=== PATIENT | male | born 1960 | race Caucasian/White ===

== ENCOUNTER 2018-05-15 16:22 | Inpatient (IN) | payer OTHER ==
[~2018-05-15] VITALS: Ht 172.7 cm; Wt 88.9 kg
[~2018-05-15 16:22] MED LIST: FLOMAX0.4 MG PO; INVOKANA300 MG PO; JANUMET 50-5001 EACH PO; JANUVIA100 MG PO; LIPITOR10 MG PO; OMEPRAZOLE20 M1 PO; PRANDIN2 MG PO
[2018-05-15 16:29] VITALS: BP 119/74; BP 159/86
[2018-05-15] MEDS ORDERED: HUMALOG100 UNIT/1 SUBQ (16:35)
[2018-05-15] MEDS ORDERED: JARDIANCE10 MG PO (16:36)
[2018-05-15] MEDS ORDERED: TRESIBA FL100 UNIT/1 SUBQ (16:36)
[2018-05-15] MEDS ORDERED: FISH OIL 1,001000 M2 PO (16:37)
[2018-05-15] MEDS ORDERED: FISH OIL 1,2001 EAC4 PO (16:37)
[2018-05-15 16:49] LABS: ABSOLUTE EOSINOPHILS 0.5 thou/uL (0.0-0.7); ABSOLUTE LYMPHOCYTES 1.8 thou/uL (0.8-5.3); ABSOLUTE MONOCYTES 0.7 thou/uL (0.0-1.2); ABSOLUTE NEUTROPHILS 4.5 thou/uL (1.6-8.1); BASOPHILS 0.5 %; EOSINOPHILS 6.6 %; HEMOGLOBIN 17.4 gm/dL (14.0-18.0); LYMPHOCYTES 23.6 %; MCH 30.8 pg (26.0-34.0); MCV 90.6 fL (80.0-100.0); MONOCYTES 9.6 %; MPV 7.6 fl. (7.2-11.1); NUCLEATED RBCS 0 /100WBC; PLATELET COUNT* 251 thou/uL (150-400); POLYS 59.7 %; RBC 5.63 mil/uL (4.50-6.00); RDW-CV 12.9 % (10.5-14.5); WBC 7.5 thou/uL (4.0-11.0)
[2018-05-15 16:59] LABS: ANION GAP 5 mmol/L (7-16); BUN 19 mg/dL (7-18); CALCIUM 8.6 mg/dL (8.5-10.1); CHLORIDE 101 mmol/L (98-107); CO2 30 mmol/L (21-32); CREATININE 1.1 mg/dL (0.6-1.3); GLUCOSE 131 mg/dL (70-99); POTASSIUM 3.4 mmol/L (3.5-5.1); SODIUM 136 mmol/L (136-145)
[2018-05-15 17:01] LABS: INR 1.1
[2018-05-15 17:10] LABS: ALBUMIN 3.7 g/dL (3.4-5.0); ALKALINE PHOSPHATASE 88 U/L (46-116); LIPASE 100 U/L (73-393); NT-PRO BRAIN NAT PEPTIDE 21 pg/mL (<300); SGOT 32 U/L (15-37); SGPT 50 U/L (30-65); TOTAL BILIRUBIN 0.4 mg/dL (<0.1-1.0); TOTAL PROTEIN 7.9 g/dL (6.4-8.2); TROPONIN-I LEVEL <0.06 ng/mL (<0.06)
[2018-05-15] MEDS ORDERED: Z-SLEEP25 MG PO (17:57)
[2018-05-15 20:44] VITALS: BP 135/89
[2018-05-15 20:50] VITALS: BP 141/84
[2018-05-16] VITALS (11 sets, daily range): BP systolic 105–133; BP diastolic 55–87
--- NOTE | 2018-05-16 17:22 | EKG ---
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: : 1960 Requested By: Leroy Galaviz Order Number: [id number] MD: Nba Schroeder Measurements Intervals [place] Rate: 66 P: 45 [place]: 161 QRS: -17 QRSD: 125 T: 24 QT: 418 QTc: 438 Interpretive Statements Sinus rhythm Atrial premature complex Possible left atrial enlargement Right bundle branch block Compared to ECG 10/09/2016 09:33:15 Atrial premature complex(es) now present Electronically Signed On 05-16-2018 17:22:26 CDT by Nba Schroeder [email or web address] <ELECTRONICALLY SIGNED> By: Nba Schroeder MD, FACC 05/16/18 1722 1628 1628 Nba Schroeder MD, [facility] /EPI
--- NOTE | 2018-05-16 17:23 | EKG ---
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[facility] : 1960 Requested By: Leroy Galaviz Order Number: [id number] MD: Nba Schroeder Measurements Intervals [place] Rate: 68 P: 32 [place]: 148 QRS: -14 QRSD: 123 T: 12 QT: 432 QTc: 460 Interpretive Statements Sinus rhythm Right bundle branch block Compared to ECG 10/09/2016 09:33:15 No significant changes Electronically Signed On 05-16-2018 17:22:48 CDT by Nba Schroeder [email or web address] <ELECTRONICALLY SIGNED> By: Nba Schroeder MD, [facility] 05/16/18 1722 1728 Nba Schroeder MD, FAC /EPI
--- NOTE | 2018-05-16 17:26 | EKG ---
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 : 1960 Requested By: Nba Schroeder Order Number: [id number] MD: Nba Schroeder Measurements Intervals [place] Rate: 82 P: 42 [place]: 150 QRS: -40 QRSD: 104 T: -14 QT: 393 QTc: 459 Interpretive Statements Sinus rhythm Multiple premature complexes, vent & supraven Low voltage, precordial leads RSR' in V1 or V2, probably normal variant Consider anterior infarct Borderline T abnormalities, inferior leads Compared to ECG 10/09/2016 09:33:15 Low QRS voltage now present RSR' in V1 or V2 now present Myocardial infarct finding now present T-wave abnormality now present Right bundle-branch block no longer present Electronically Signed On 05-16-2018 17:26:47 CDT by Nba Schroeder [email or web address] <ELECTRONICALLY SIGNED> By: Nba Schroeder MD, FACC 05/16/18 1726 51 125 Nba Schroeder MD, FACC /EPI
--- NOTE | 2018-05-16 17:27 | EKG ---
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
[2018-05-17] VITALS (9 sets, daily range): BP systolic 121–174; BP diastolic 69–87
[2018-05-17 04:38] LABS: MCH 31.2 pg (26.0-34.0); MCHC 34.7 g/dL (28.0-37.0); MCV 89.7 fL (80.0-100.0); MPV 7.7 fl. (7.2-11.1); RBC 4.79 mil/uL (4.50-6.00); WBC 7.5 thou/uL (4.0-11.0)
[2018-05-17 04:47] LABS: HEMOGLOBIN 14.9 gm/dL (14.0-18.0)
[2018-05-17 04:58] LABS: ALKALINE PHOSPHATASE 63 U/L (46-116); ANION GAP 6 mmol/L (7-16); BUN 12 mg/dL (7-18); CALCIUM 8.2 mg/dL (8.5-10.1); CHLORIDE 104 mmol/L (98-107); CHOLESTEROL 157 mg/dL (<200); CO2 25 mmol/L (21-32); CREATININE 0.9 mg/dL (0.6-1.3); GLUCOSE 133 mg/dL (70-99); HDL CHOLESTEROL 38 mg/dL (>40); LDL CHOLESTEROL 98 mg/dL (<100); POTASSIUM 3.8 mmol/L (3.5-5.1); SGOT 27 U/L (15-37); SGPT 41 U/L (30-65); SODIUM 135 mmol/L (136-145); TC:HDL 4.1 Ratio (Not establshd); TOTAL BILIRUBIN 0.6 mg/dL (<0.1-1.0); TOTAL PROTEIN 6.5 g/dL (6.4-8.2); TRIGLYCERIDE 106 mg/dL (<150); TROPONIN-I LEVEL 0.37 ng/mL (<0.06); VLDL 21 mg/dL (<40)
[2018-05-17 05:02] LABS: SERUM ASSESSMENT CLEAR
[2018-05-17] MEDS ORDERED: EFFIENT10 MG PO (10:24)
[2018-05-17] MEDS ORDERED: NITROGLYCERIN0.4 MG SUBLING (10:25)
[2018-05-17] MEDS ORDERED: ASPIR 8181 MG PO (10:33)
[2018-05-17] MEDS ORDERED: LIVALO4 MG PO (10:34)
--- NOTE | 2018-05-17 17:00 | EKG ---
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
--- NOTE | 2018-05-19 11:26 | CARD ---
[address] [address] CARDIAC CATH REPORT Name: CORBY LAWTON Room: [address] IN ..#: [id number] Admission: 05/15/18 Attend Phys: Will Henderson Discharge: 05/17/18 Date of : 60 Report #: [id number] THIS REPORT FOR: //name// APPROVED REPORT Study performed: 05/16/2018 13:54:01 Patient Details Patient Status: In-Patient Room #: 206 The patient is a 57 year-old male Event Personnel Moises Riddel Pin Drafting Machine Tender, Loree Aceves RN Finish Filer, Osvaldo Hutchison Haley, Jessica RTYaneth Monitor Procedures Performed Art Access - L femoral artery* Left Heart Cath w/or w/o Coronaries [id number] [facility] w/wo Plasty Single LAD [id number] Hemostasis w/ Angioseal Indication Unstable angina Risk Factors Family History, Hypercholesterolemia, Hypertension Admission/Lab Medications/Medications given during procedure Aspirin, Platelet Aff. Inhib., Angiomax bolus and infusion Procedure Narrative The patient was brought electively to the Cardiac Catheterization Laboratory and was prepped and draped in a sterile manner. The left femoral was infiltrated with 2% Lidocaine subcutaneous anesthesia. A [place] 6 FR sheath was inserted into the left femoral artery. Coronary angiography was performed using coronary diagnostic catheters. The right coronary system was accessed and visualized with a 6frJR 4 catheter. The left coronary system was accessed and visualized with a 6FR JL 4 catheter. The left ventricle was accessed and visualized with a 6FR PIGTAIL catheter. Left ventricular/Aortic Valve gradient assessed via catheter pullback. Left ventriculogram was performed in SALGADO projection. Pre-demployment femoral angiogram was performed . Closure device was deployed with a 6 Fr Angioseal STS 6Fr. The patient tolerated the procedure well and there were no complications associated with the procedure. [place] [address] CARDIAC CATH REPORT Name: CORBY LAWTON Room: [address]#: [id number] Admission: 05/15/18 Attend Phys: Will Henderson Discharge: 05/17/18 Date of : 60 Report #: [id number] Intraoperative Conscious Sedation Sedation start time: 14:35 Case end Time: 15:25 Fentanyl 50 mcg Versed 2 mg Fluoro Time: 15.5 minutes Dose: DAP 696723 cGycm2 1603 mGy Contrast Type and Amount: Visipaque 360 ml Diagnostic Cath Left Main 0% narrowing LAD Tandem 75 and 80% mid vessel stenosis followed by tubular 90% mid LAD stenosis Circumflex 40 Percent narrowing of the proximal portion of the first marginal branch with 30% proximal second marginal narrowing Right Coronary Modest sized dominant vessel with 0% narrowing Left Ventriculography The left ventricle is normal in size with contractility. The left ventricular ejection fraction is estimated to be 60%. Left ventricular wall motion abnormalities are present. There is no mitral insufficiency. Mild anterior hypokinesis is noted Hemodynamics The aortic pressure is 100/57 mmHg with a mean of mmHg. The left ventricular pressure is 117/3 mmHg with a mean of mmHg. The left ventricular end diastolic pressure is 8 mmHg. There was no gradient across the aortic valve upon pullback. Pullback from the left ventricle to the aorta revealed no gradient across the aortic valve. PCI Technique Lesion Percutaneous coronary intervention was performed on the mid left anterior descending artery segment. The lesion stenosis prior to intervention was 90% with DEEP flow. A 6F XB LAD 3.5 Guide Catheter was used to engage the LCA ostium. A Kabbee Interventional Guidewire was used to cross the lesion. BALLOON DILATION A Balloon catheter Trek RX 2.25 X 12 was inserted and inflated up to 10.00atm for 10seconds. Additional Inflation: 16.00atm for 12seconds. STENT DEPLOYMENT A drug-eluting stent Xience Alpine RX 2.25X23 [place] [address] CARDIAC CATH REPORT Name: CORBY LAWTON Room: [address] IN M.R.#: [id number] Admission: 05/15/18 Attend Phys: Will Henderson Discharge: 05/17/18 Date of : 60 Report #: [id number] inflated up to 12.00atm for 8seconds. Additional Inflation: 15.00atm for 8seconds. Additional Inflation: 16.00atm for 8seconds. POST STENT DEPLOYMENT BALLOON DILATION A Balloon catheter NC Trek RX 2.5 X 12 was inserted and inflated up to 16.00atm for 6seconds. Additional Inflation: 18.00atm for 11seconds. Final angiography reveals 10 % stenosis with DEEP 3 flow. PCI Technique Lesion 2 Percutaneous Coronary Intervention was performed on the mid left anterior descending artery segment. Stent Deployment A drug-eluting stent Xience Alpine RX 2.5X28 was inserted and inflated up to 12atm for 8seconds. Additional Inflation: 16atm for 7seconds. Post Stent Deployment Balloon Dilation A Balloon catheter NC Trek RX 2.75 X 12 was inserted and inflated up to 14atm for 6seconds. Additional Inflation: 15atm for 7seconds. Additional Inflation: 16atm for 7seconds. 18 HOLA X 8 Seconds 22ATM X 10 Seconds Final angiography reveals 10 % stenosis with DEEP 3 flow. Post Stent Deployment Balloon Dilation A Balloon catheter NC Trek RX 3.0 X 12 was inserted and inflated up to 16atm for 8seconds. Additional Inflation: 18atm for 9seconds. Additional Inflation: 18atm for 4seconds. Conclusion #1 significant coronary artery disease characterized by following: A tandem 75 and 80% followed by 90% tubular mid LAD stenosis B nondominant circumflex with 40% proximal first marginal 30% proximal second marginal narrowing C modest sized dominant right coronary artery with 0% narrowing #2 normal global left ventricular systolic function, estimated ejection fraction being 60% with mild anterior hypokinesis #3 normal left-sided hemodynamics study [address] [address] CARDIAC CATH REPORT Name: CORBY LAWTON Room: [address] IN M.R.#: [id number] Admission: 05/15/18 Attend Phys: Will Henderson Discharge: 05/17/18 Date of : 60 Report #: [id number] #4 successful percutaneous coronary intervention with deployment of sequential drug-eluting stents at the sites of 75%, 80%, and tubular 90% mid LAD stenosis with 10% residual narrowing and DEEP-3 flow to the distal vessel Recommendations Cardiac Risk Reduction Program Aggressive Medical Therapy Medications Administered Aspirin (any) Prasugrel Diagnostic Cath Approved by: Moises Riddle MD Date/Time: 05/19/2018 11:25:48 <ELECTRONICALLY SIGNED> By: Moises Riddle MD, FACC 05/19/18 1126 1126 1126Moises Riddle MD, FACC /INF
== END 2018-05-17 13:00 | disposition home or self-care (01) | DRG 247 ==
LOC: M.ERS 16:22 → M.TBA-ER 17:32 → M.2W 17:32
PROVIDERS: Emergency Medicine; Internal Medicine; ADMIT Internal Medicine
PROC: B211YZZ Fluoroscopy of Multiple Coronary Arteries using Other Contrast (ICD-10-PCS; principal; 2018-05-16)
PROC: 4A023N7 Measurement of Cardiac Sampling and Pressure, Left Heart, Percutaneous Approach (ICD-10-PCS; principal; 2018-05-16)
PROC: 027035Z Dilation of Coronary Artery, One Artery with Two Drug-eluting Intraluminal Devices, Percutaneous Approach (ICD-10-PCS; principal; 2018-05-16)
PROC: B215YZZ Fluoroscopy of Left Heart using Other Contrast (ICD-10-PCS; principal; 2018-05-16)
DX: I25.110 Atherosclerotic heart disease of native coronary artery with unstable angina pectoris (principal); E87.1 Hypo-osmolality and hyponatremia; E11.9 Type 2 diabetes mellitus without complications; E78.00 Pure hypercholesterolemia, unspecified; E78.5 Hyperlipidemia, unspecified; K57.90 Diverticulosis of intestine, part unspecified, without perforation or abscess without bleeding; Z90.49 Acquired absence of other specified parts of digestive tract; Z88.8 Allergy status to other drugs, medicaments and biological substances; Z87.891 Personal history of nicotine dependence; Z82.49 Family history of ischemic heart disease and other diseases of the circulatory system; Z83.3 Family history of diabetes mellitus; Z79.82 Long term (current) use of aspirin; Z79.899 Other long term (current) drug therapy

== ENCOUNTER 2018-12-19 09:31 | Observation (INO) | payer OTHER ==
[~2018-12-19] VITALS: Ht 172.7 cm; Wt 90.7 kg
[2018-12-19] VITALS (16 sets, daily range): BP systolic 95–137; BP diastolic 59–78
[~2018-12-19 09:31] MED LIST changes: +ASPIR 8181 MG PO; +EFFIENT10 MG PO; +FISH OIL 1,001000 M2 PO; +HUMALOG100 UNIT/1 SUBQ; +JARDIANCE10 MG PO; +LIVALO4 MG PO; +NITROGLYCERIN0.4 MG SUBLING; +TRESIBA FL100 UNIT/1 SUBQ; +Z-SLEEP25 MG PO
[2018-12-19] MEDS ORDERED: ISOSORBIDE DINI30 MG PO (09:38)
[2018-12-19] MEDS ORDERED: EFFIENT10 MG PO (09:38)
[2018-12-19 10:03] LABS: ABSOLUTE EOSINOPHILS 0.2 thou/uL (0.0-0.7); ABSOLUTE LYMPHOCYTES 1.2 thou/uL (0.8-5.3); ABSOLUTE MONOCYTES 0.9 thou/uL (0.0-1.2); ABSOLUTE NEUTROPHILS 5.3 thou/uL (1.6-8.1); BASOPHILS 0.4 %; EOSINOPHILS 2.8 %; HEMATOCRIT 44.9 % (42.0-52.0); HEMOGLOBIN 15.4 gm/dL (14.0-18.0); LYMPHOCYTES 15.4 %; MCH 30.4 pg (26.0-34.0); MCHC 34.2 g/dL (28.0-37.0); MCV 88.9 fL (80.0-100.0); MONOCYTES 11.7 %; MPV 7.7 fl. (7.2-11.1); NUCLEATED RBCS 0 /100WBC; PLATELET COUNT* 197 thou/uL (150-400); POLYS 69.7 %; RBC 5.06 mil/uL (4.50-6.00); RDW-CV 13.4 % (10.5-14.5); WBC 7.5 thou/uL (4.0-11.0)
[2018-12-19 10:12] LABS: ANION GAP 9 mmol/L (7-16); BUN 18 mg/dL (7-18); CALCIUM 8.6 mg/dL (8.5-10.1); CHLORIDE 102 mmol/L (98-107); CO2 27 mmol/L (21-32); CREATININE 1.1 mg/dL (0.6-1.3); GLUCOSE 206 mg/dL (70-99); SODIUM 138 mmol/L (136-145)
[2018-12-19 10:14] LABS: APTT 30.1 Seconds (25.0-31.3); INR 1.1; PROTIME 11.2 Seconds (9.20-11.50)
[2018-12-19 10:28] LABS: ALBUMIN 3.5 g/dL (3.4-5.0); ALKALINE PHOSPHATASE 73 U/L (46-116); CK-MB MASS 4.4 ng/mL (<0.5-3.6); LIPASE 81 U/L (73-393); MAGNESIUM 1.8 mg/dL (1.8-2.4); NT-PRO BRAIN NAT PEPTIDE 21 pg/mL (<300); SGOT 32 U/L (15-37); SGPT 38 U/L (30-65); TOTAL BILIRUBIN 0.7 mg/dL (<0.1-1.0); TOTAL PROTEIN 7.4 g/dL (6.4-8.2); TROPONIN-I LEVEL <0.06 ng/mL (<0.06)
--- NOTE | 2018-12-19 15:39 | EKG ---
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: : 1960 Requested By: Jose Webster Order Number: [id number] MD: Carrington Natarajan Measurements Intervals [place] Rate: 62 P: 40 PA: 157 QRS: -23 QRSD: 122 T: 2 QT: 410 QTc: 417 Interpretive Statements Sinus rhythm Atrial premature complex Right bundle branch block Compared to ECG 05/17/2018 03:06:18 Atrial premature complex(es) now present Electronically Signed On 12-19-2018 15:39:15 CDT by Carrington Natarajan [email or web address] <ELECTRONICALLY SIGNED> By: Carrington Natarajan MD, [facility] 12/19/18 1539 0932 0932 Carrington Natarajan MD, [facility] /EPI
--- NOTE | 2018-12-19 16:26 | NUR ---
RECEIVED REPORT FROM ANDRA IN [facility] CONSERVATION SPECIALIST AND ASSUMED CARE OF PT @ 7906.PT IS A/O X4,VSS,TRACING SR ON THE MONITOR.IV PATENT WITH IVF INFUSING PER ORDERS.RIGHT RADIAL CATH CLEAN,DRY,AND INTACT WITH RADIAL BAND PRESSURE DRESSING INTACT WITH 9ML OF AIR.POST CATH PROTOCOL FOLLOWED.PT IS CALM AND COOPERATIVE WITH NO C/O PAIN AT TIME OF ASSESSMENT.PT IS UP AD DELORES IN ROOM.PT HAS BEEN EDUCATED ON IMMOBILZATION OF RIGHT WRIST.PT LEFT RESTING IN BED WITH CALL LIGHT WITHIN REACH.WILL CONTINUE TO MONITOR.
--- NOTE | 2018-12-19 16:35 | CARD ---
[address] [address] CARDIAC CATH REPORT Name: CORBY LAWTON Room: [address] IN ..#: [id number] Admission: 12/19/18 Attend Phys: Vonda Dominguez MD Discharge: Date of : 60 Report #: [id number] THIS REPORT FOR: //name// APPROVED REPORT Study performed: 12/19/2018 14:13:57 Patient Details Patient Status: In-Patient Room #: The patient is a 58 year-old male Event Personnel Carrington Natarajan Social Work Msw, Ekta Walters RN Teacher Instrumental, Jose M Christiansen (Yaneth) Harry Banegas Brad FAST FOOD ATTENDANT Monitor Procedures Performed Art Access - R radial artery Left Heart Cath w/or w/o Coronaries [id number] [facility] Indication Chest pain Risk Factors Hypercholesterolemia, Coronary Artery Disease, Diabetes Previous Procedures/Diagnoses Previous PCI Admission/Lab Medications/Medications given during procedure Heparin Unfract., Midazolam (Versed) IV 2 mg, Fentanyl IV 25 mcg, Lidocaine Subcut 2 ml, Nitroglycerin IA 200 mcg, Verapamil IA 2.5 mg, Heparin IV 4500 units Procedure Narrative The patient was brought electively to the Cardiac Catheterization Laboratory and was prepped and draped in a sterile manner. The right wrist was infiltrated with 1% Lidocaine subcutaneous anesthesia. A Slender [place] sheath was inserted into the right radial artery. Coronary angiography was performed using coronary diagnostic catheters. The right coronary system was accessed and visualized with a JR4 6fr catheter. The left coronary system was accessed and visualized with a JL4 6fr catheter. The left ventricle was accessed and visualized with a PC: Pig 6fr catheter. Left ventricular/Aortic Valve gradient assessed via catheter pullback. Left ventriculogram was performed in [place] projection. Closure device was deployed with a [address] [place] [address] CARDIAC CATH REPORT Name: CORBY LAWTON Room: [address]#: [id number] Admission: 12/19/18 Attend Phys: Vonda Dominguez MD Discharge: Date of : 60 Report #: [id number] Fr Vasc-Band Reg 24cm. The patient tolerated the procedure well and there were no complications associated with the procedure. There was no hematoma. Intraoperative Conscious Sedation Fentanyl mcg Dose: 729 mGy Contrast Type and Amount: Omnipaque 140 ml Coronary Angiography The patient's coronary anatomy is co- dominant. Diagnostic Cath Left Main 0% stenosis LAD 30% proximal stenosis. No restenosis of stents in mid lad Diagonal 2 small vessel with ostial 80% stenosis OM1 30% proximal stenosis Right Coronary 0% stenosis Ramus 30% proximal stenosis Left Ventriculography The left ventricle is normal in size with normal contractility. The left ventricular ejection fraction is estimated to be 60-65%. Left ventricular wall motion abnormalities are not present. There is no mitral insufficiency. Hemodynamics The aortic pressure is 112/69 mmHg with a mean of 85 mmHg. The left ventricular pressure is 131/10 mmHg with a mean of mmHg. The left ventricular end diastolic pressure is 16 mmHg. There was no gradient across the aortic valve upon pullback. Pullback from the left ventricle to the aorta revealed no gradient across the aortic valve. Conclusion 1. No restenosis of stents in the mid lad 2. LVEF 60-65% Recommendations Aggressive Medical Therapy <ELECTRONICALLY SIGNED> By: Carrington Natarajan MD, FACC 12/19/18 1634 1634 1634Davisavana Natarajan MD, FACC /INF
[2018-12-19] MEDS ORDERED: FISH OIL 1,2001 EAC4 PO (18:15)
--- NOTE | 2018-12-19 18:35 | NUR ---
PT OK FOR DISCHARGE AFTER POST CATH VITALS ARE COMPLETE AND RADIAL CLOSURE DEVICE REMOVED.DISCHARGE PAPERWORK COMPLETED.PT WILL BE READY FOR DISCHARGE @ 1999 IF THERE ARE NO COMPLICATIONS AFTER SHIFT CHANGE.RIGHT RADIAL CATH SITE CLEAN,DRY, AND INTACT.METAL DRESSER IN PLACE WITH NO CHANGES.NO C/O PAIN.IV PATENT AND SALINE LOCKED.PT INFORMED OF PLAN OF CARE AND COMMUNICATES UNDERSTANDING.HOURLY ROUNDING COMPLETED FOR PT SAFETY.CALL LIGHT WITHIN REACH.WILL CONTINUE TO MONITOR FOR DURATION OF SHIFT.
--- NOTE | 2018-12-20 14:01 | CON ---
[address] [address] CONSULTATION Name: JEREDCORBY Issac Room: [address] Izabel Balderrama#: [id number] Admission: 12/19/18 Attend Phys: Vonda Dominguez MD Discharge: 12/19/18 Date of : 60 Report #: [id number] THIS REPORT FOR: //name// CC: Lisa Marie DO Vonda Dominguez DATE OF SERVICE: 12/19/2018 HISTORY OF PRESENT ILLNESS: The patient is a 58-year-old white male who I was asked to see in the Emergency Room today after he complained of chest pain. The patient has a long history of diabetes and hyperlipidemia. He apparently had a stress test years ago. He was doing well until last April. He was admitted here to [place] after an episode of chest discomfort, dizziness, fatigue, diaphoresis. He was seen by Dr. Riddle and underwent a cardiac catheterization from the right femoral artery. He was found to have 90% stenosis and had 2 coronary stents placed. He has done well since that time. However, recently he has had intermittent chest discomfort in the last several days. He has felt weak. He has had occasional aching of his right arm. He has had episodes where he becomes diaphoretic, short of breath and nauseated. One episode lasted about an hour. He took a nitroglycerin. He actually just saw Dr. Riddle in the Cardiology Clinic last week and Dr. Riddle recommended scheduling a repeat cardiac catheterization. However, this morning, the patient was at work, had an episode of chest discomfort, went down his arm, became short of breath. He came to the Emergency Room and was admitted for further evaluation and treatment. He is not very active and denies exertional dyspnea, palpitations, syncope, fever or bleeding. PAST MEDICAL HISTORY: He has had previous cholecystectomy, hernia repair, hyperlipidemia and diabetes. MEDICATIONS: Consists of aspirin, Jardiance, insulin, Livalo which he takes every other day because of knee pain and Effient 10 mg a day. ALLERGIES: HE HAS AN INTOLERANCE TO CIPRO, METFORMIN, AND SULFA DRUGS. FAMILY HISTORY: Strongly positive for coronary artery disease with his father having coronary artery bypass surgery. REVIEW OF SYSTEMS: No history of stroke. He quit smoking years ago, rarely drinks alcohol. No history of peptic ulcer disease. He has seasonal allergies. No history of kidney disease, liver disease or cancer. He wears glasses, psychiatric illness. PHYSICAL EXAMINATION: GENERAL: Revealed a middle-aged male, appeared [place] [address] CONSULTATION Name: CORBY LAWTON Room: [address] Izabel Balderrama#: [id number] Admission: 12/19/18 Attend Phys: Vonda Dominguez MD Discharge: 12/19/18 Date of : 60 Report #: [id number] pain. VITAL SIGNS: His blood pressure of 120/70, pulse 60. He is afebrile. HEENT: He is anicteric. Conjunctivae pink. Mucous members moist. NECK: Neck veins are not distended. No carotid bruits. Neck is supple. CHEST: Clear to auscultation. CARDIOVASCULAR: Regular rate and rhythm. ABDOMEN: Soft. EXTREMITIES: Had no edema. Posterior tibial pulse 2+ bilaterally. SKIN: Warm, dry. NEUROLOGIC: Nonfocal. LABORATORY DATA: ECG showed a sinus rhythm, occasional PAC. There was an incomplete right bundle-branch block, nonspecific ST-segment changes. The patient's echocardiogram in the clinic last week showed an ejection fraction of 60-65%. His workup today, he had a portable chest x-ray that showed normal heart size and clear lung cha. His lab work today, sodium 138, BUN of 18, creatinine 1.1, glucose 206. Liver function studies are normal. Troponin 0.06, previous LDL was 98. His white blood cell count 7.5, hemoglobin 15.4. IMPRESSION AND RECOMMENDATIONS: 1. Unstable angina. Recommend repeat cardiac catheterization. 2. Diabetes. 3. Hyperlipidemia. I am not sure if the patient's knee pain represents myositis. However, the patient feels the symptoms got better after discontinuing his statin drug. 4. Previous tobacco abuse. <ELECTRONICALLY SIGNED> By: Carrington Natarajan MD, [facility] 12/20/18 1401 1054 [id number] Natarajan MD, [facility] /nt
== END 2018-12-19 20:20 | disposition home or self-care (01) ==
LOC: M.ERS 09:31 → M.2W 11:14 → M.TBA-ER 11:14 → M.2W 15:40
PROVIDERS: Family Medicine; ADMIT Family Medicine
DX: I25.110 Atherosclerotic heart disease of native coronary artery with unstable angina pectoris (principal); I25.10 Atherosclerotic heart disease of native coronary artery without angina pectoris; R07.89 Other chest pain; K21.9 Gastro-esophageal reflux disease without esophagitis; N18.2 Chronic kidney disease, stage 2 (mild); E11.9 Type 2 diabetes mellitus without complications; E78.00 Pure hypercholesterolemia, unspecified; Z88.8 Allergy status to other drugs, medicaments and biological substances; Z90.49 Acquired absence of other specified parts of digestive tract; Z79.82 Long term (current) use of aspirin; Z95.5 Presence of coronary angioplasty implant and graft; Z88.2 Allergy status to sulfonamides; Z87.891 Personal history of nicotine dependence

== ENCOUNTER → 2019-09-27 | Outpatient (CLI) | payer OTHER ==
[~2019-09-27] MED LIST changes: +FISH OIL 1,2001 EAC4 PO; +ISOSORBIDE DINI30 MG PO
--- NOTE | 2019-09-27 17:51 | CARDNUC ---
[place] [address] CARDIAC NUCLEAR IMAGING REPORT Name: NBA LAWTON Room: [facility]#: [id number] Admission: 09/27/19 Attend Phys: Will Ocampo Discharge: Date of : 60 Date of Service: 09/27/19 1751 Report #: [id number] THIS REPORT FOR: cc: Lisa Marie Linda J. DO Liston, Michael J. MD [facility] ~ APPROVED REPORT Imaging Protocol: Rest Tc-99m/Stress Tc-99m 1 day Study performed: 09/27/2019 12:45:00 Indication: Chest pain, Fatigue Patient Location: Out-Patient Stress Tech: Yudith Luque Stress Nurse: Grisel Guerin RN NM Tech:MELVIN Parikh Ht: 5 ft 8 in Wt: 200 lbs BSA: 2.04 m2 BMI: 30.40 Medical History Medical History: CAD s/p stent, CAD s/p [place], Diabetic Insulin, HTN, Former Smoker, Hyperlipidemia Medications: asa-81, ntg, effient Allergies: ciprofloxacin, doxycycline, metformin, flagyl, sulfa, ambien Cardiac Risk Factors: Age, Diabetes (insulin), FHX of CAD, HTN, Hyperlipidemia, Past Smoker Previous Cardiac Procedures: PCI, Myocardial infarction Exercise History: Physically active Resting Data Rest SPECT myocardial perfusion imaging was performed in supine position 30 minutes following the intravenous injection of 10.4 mCi of Tc-99m Sestamibi. Time of rest injection: 1305 Date: 09/27/2019 The images were gated to evaluate regional wall motion and calculate left ventricular ejection fraction. Administration Route: IV Administration Site: Right AC Exercise Stress At peak stress, the patient was injected intravenously with 31.1mCi of Tc-99[place] [address] CARDIAC NUCLEAR IMAGING REPORT Name: NBA LAWTON Room: [facility]#: [id number] Admission: 09/27/19 Attend Phys: Will Ocampo Discharge: Date of : 60 Date of Service: 09/27/19 1750 Report #: [id number] Time of stress injection: 1440 Date: 09/27/2019 Administration Route: IV Administration Site: Right AC Gated Stress SPECT was performed 30 minutes after stress injection. The images were gated to evaluate regional wall motion and calculate left ventricular ejection fraction. Prone imaging was performed. Stress Test Details Stress Test: Exercise stress testing was performed using a Eloy protocol. HR Max Heart Rate (APMHR): 161 bpm Resting HR: 67 bpm Target HR (85% APMHR): 136 bpm Max HR Achieved: 150 bpm % of APMHR: 93 Recovery HR: 95 bpm HR response to stress: Normal HR response to stress BP Resting BP: 155/94 mmHg Max BP: 214/84 mmHg Recovery BP: 155/89 mmHg BP response to stress: Abnormal hypertensive response to stress. ECG Resting ECG: Sinus Rhythm Stress ECG: Sinus Tachycardia ST Change: None Arrhythmia: None Recovery ECG: Sinus Rhythm Recovery ST Change: None Recovery Arrhythmia: None Clinical Reason for Termination: Dyspnea, Fatigue Exercise duration: 7 min 46 sec Exercise capacity: 9.76 METs Overall Exercise Capacity for Age: Normal Functional Aerobic Impairment 93% The patient tolerated standard Eloy protocol exercise without significant cardiac symptoms. Stress ECG Conclusion The baseline 12-lead EKG show sinus rhythm [place] [address] CARDIAC NUCLEAR IMAGING REPORT Name: NBA LAWTON Room: [facility]#: [id number] Admission: 09/27/19 Attend Phys: Will Ocampo Discharge: Date of : 60 Date of Service: 09/27/19 1750 Report #: [id number] segment abnormality. EKGs obtained during and post exercise showed sinus rhythm and sinus tachycardia with no significant ST segment changes when compared to baseline. There were no stress-induced arrhythmias. Study Quality Study: Good Artifact: Mild Diaphragmatic artifact Study Data At rest, the left ventricular ejection fraction was 71%.. Post stress, the left ventricular ejection was 76%.. TID = 0.82. Perfusion Perfusion images obtained in the supine position at rest and post exercise stress show mild photopenia in the inferior wall that resolves completely with post stress prone imaging suggesting diaphragmatic attenuation artifact. There were no significant reversible defects. Wall Motion Normal left ventricular wall motion. Nuclear Conclusion ECG Findings: negative for ischemia Clinical Findings: negative for ischemia Nuclear Findings: negative for ischemia Exercise Capacity: normal Left Ventricular Function: normal Risk Study: low Myocardial perfusion images show no defect to suggest ischemia. Left ventricular systolic function appears normal on gated studies. This is a low risk study. <Conclusion> The baseline 12-lead EKG show sinus rhythm without significant ST segment abnormality. EKGs obtained during and post exercise showed sinus rhythm and sinus tachycardia with no significant ST segment changes when compared to baseline. There were no stress-induced arrhythmias. <ELECTRONICALLY SIGNED> By: Nba Schroeder MD, FACC 09/27/191749 49 49 Nba Schroeder MD, FACC /INF
== END ==
LOC: M.NUC 09-11 16:07
DX: I25.119 Atherosclerotic heart disease of native coronary artery with unspecified angina pectoris (principal); E11.65 Type 2 diabetes mellitus with hyperglycemia; I10 Essential (primary) hypertension; E55.9 Vitamin D deficiency, unspecified; Z87.891 Personal history of nicotine dependence; Z79.899 Other long term (current) drug therapy; Z95.5 Presence of coronary angioplasty implant and graft; Z79.4 Long term (current) use of insulin; Z88.1 Allergy status to other antibiotic agents; Z88.8 Allergy status to other drugs, medicaments and biological substances

== ENCOUNTER 2019-11-05 15:46 | Emergency (ER) | payer OTHER ==
[~2019-11-05] VITALS: Ht 172.7 cm; Wt 90.7 kg
[2019-11-05 16:12] LABS: URINE BILIRUBIN NEGATIVE (Negative); URINE BLOOD NEGATIVE (Negative); URINE CLARITY CLEAR; URINE COLOR YELLOW; URINE GLUCOSE-RANDOM 3+ (Negative); URINE KETONES 1+ (Negative); URINE LEUKOCYTES-REFLEX NEGATIVE (Negative); URINE NITRITE-REFLEX NEGATIVE (Negative); URINE PROTEIN NEGATIVE (Negative); URINE SPECIFIC GRAVITY 1.025 (1.005-1.030); URINE UROBILINOGEN 0.2 E.U./dl (0.2-1.0)
[2019-11-05 16:30] LABS: HEMATOCRIT 51.2 % (42.0-52.0); MCHC 35.1 g/dL (28.0-37.0); MCV 88.2 fL (80.0-100.0); MPV 7.5 fl. (7.2-11.1); NUCLEATED RBCS 0 /100WBC; PLATELET COUNT* 270 thou/uL (150-400); RDW-CV 13.2 % (10.5-14.5); WBC 14.4 thou/uL (4.0-11.0)
[2019-11-05 16:34] LABS: CALCIUM 8.9 mg/dL (8.5-10.1); CREATININE 1.2 mg/dL (0.6-1.3); POTASSIUM 3.6 mmol/L (3.5-5.1)
[2019-11-05 16:38] LABS: ALBUMIN 3.9 g/dL (3.4-5.0); TOTAL BILIRUBIN 0.8 mg/dL (<0.1-1.0); TOTAL PROTEIN 8.1 g/dL (6.4-8.2)
[2019-11-05 17:21] LABS: ABSOLUTE EOSINOPHILS 0.1 thou/uL (0.0-0.7); ABSOLUTE LYMPHOCYTES 1.2 thou/uL (0.8-5.3); ABSOLUTE MONOCYTES 0.7 thou/uL (0.0-1.2); ABSOLUTE NEUTROPHILS 12.4 thou/uL (1.6-8.1); PLATELET ESTIMATE ADEQUATE
[2019-11-05] MEDS ORDERED: TYLENOL WITH CO1 TA1 PO (17:29)
[2019-11-05] MEDS ORDERED: ONDANSETRON HCL4 M3 PO (17:29)
[2019-11-05 18:08] VITALS: BP 172/112
--- NOTE | 2019-11-06 08:51 | EKG ---
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1960 Requested By: Antelmo Lakhani Order Number: [id number] MD: Carrington Natarajan Measurements Intervals [place] Rate: 93 P: 46 [place]: 154 QRS: -12 QRSD: 117 T: 20 QT: 355 QTc: 442 Interpretive Statements Sinus rhythm Multiform ventricular premature complexes Probable left atrial enlargement Incomplete right bundle branch block Compared to ECG 12/19/2018 09:32:59 Ventricular premature complex(es) now present Atrial premature complex(es) no longer present Electronically Signed On 11-06-2019 8:50:03 CDT by Carrington Natarajan [email or web address] <ELECTRONICALLY SIGNED> By: Carrington Natarajan MD, [facility] 11/06/19 0850 1625 1625 Carrington Natarajan MD, [facility] /EPI
== END 2019-11-05 17:59 | disposition home or self-care (01) ==
LOC: M.ERS 15:46
PROVIDERS: Physician Assistant
DX: R10.84 Generalized abdominal pain (principal); R10.33 Periumbilical pain; R10.31 Right lower quadrant pain; R11.2 Nausea with vomiting, unspecified; E11.9 Type 2 diabetes mellitus without complications; E78.00 Pure hypercholesterolemia, unspecified; Z88.8 Allergy status to other drugs, medicaments and biological substances; Z87.891 Personal history of nicotine dependence; Z90.49 Acquired absence of other specified parts of digestive tract; Z79.4 Long term (current) use of insulin

== ENCOUNTER 2019-11-09 15:03 | Inpatient (IN) | payer OTHER ==
[~2019-11-09] VITALS: Ht 172.7 cm; Wt 90.7 kg
[~2019-11-09 15:03] MED LIST changes: +ONDANSETRON HCL4 M3 PO; +TYLENOL WITH CO1 TA1 PO
[2019-11-09 15:07] VITALS: BP 150/97
[2019-11-09 15:56] LABS: ABSOLUTE EOSINOPHILS 0.1 thou/uL (0.0-0.7); ABSOLUTE LYMPHOCYTES 0.8 thou/uL (0.8-5.3); ABSOLUTE MONOCYTES 0.8 thou/uL (0.0-1.2); ABSOLUTE NEUTROPHILS 8.8 thou/uL (1.6-8.1); BASOPHILS 0.2 %; EOSINOPHILS 1.2 %; HEMATOCRIT 49.1 % (42.0-52.0); HEMOGLOBIN 17.2 gm/dL (14.0-18.0); LYMPHOCYTES 7.4 %; MCH 31.1 pg (26.0-34.0); MCV 88.7 fL (80.0-100.0); MONOCYTES 7.4 %; MPV 7.1 fl. (7.2-11.1); NUCLEATED RBCS 0 /100WBC; PLATELET COUNT* 290 thou/uL (150-400); POLYS 83.8 %; RBC 5.54 mil/uL (4.50-6.00); WBC 10.5 thou/uL (4.0-11.0)
[2019-11-09 16:04] LABS: CALCIUM 8.5 mg/dL (8.5-10.1); POTASSIUM 3.1 mmol/L (3.5-5.1)
[2019-11-09 16:08] LABS: ALBUMIN 3.5 g/dL (3.4-5.0); TOTAL BILIRUBIN 0.5 mg/dL (<0.1-1.0); TOTAL PROTEIN 7.6 g/dL (6.4-8.2)
--- NOTE | 2019-11-09 17:22 | NUR ---
CALLED UP TO THE FLOOR TO SPEAK WITH THE RN TAKING PT. US STATED RN'S WERE IN PT ROOMS.
[2019-11-09 17:30] VITALS: BP 179/83
[2019-11-09 18:00] VITALS: BP 128/84
--- NOTE | 2019-11-09 18:34 | NUR ---
PATIENT ARRIVED FROM THE ER THIS EVENING PER W/C. PATIENT IS ALERT AND ORIENTED X 4. HE SAYS THAT HIS PAIN IS DECREASED FROM THE ER TO A 2. PATIENT ORIENTED TO ROOM AND PROCEDURES. SURGERY CONSULT CALLED AND RESIDENT IS HERE TO ASSESS PATIENT.
[2019-11-09 20:20] VITALS: BP 141/78
[2019-11-10 01:38] LABS: URINE BILIRUBIN NEGATIVE (Negative); URINE BLOOD NEGATIVE (Negative); URINE CLARITY CLEAR; URINE COLOR YELLOW; URINE GLUCOSE-RANDOM 2+ (Negative); URINE LEUKOCYTES-REFLEX NEGATIVE (Negative); URINE NITRITE-REFLEX NEGATIVE (Negative); URINE PROTEIN NEGATIVE (Negative); URINE SPECIFIC GRAVITY >= 1.030 (1.005-1.030); URINE UROBILINOGEN 0.2 E.U./dl (0.2-1.0)
[2019-11-10 01:47] LABS: URINE KETONES 3+ (Negative)
[2019-11-10 01:52] LABS: ACETEST (KETONE CONFIRMATORY) Small (Negative)
[2019-11-10 04:00] VITALS: BP 122/79
[2019-11-10 05:18] LABS: ALBUMIN 2.7 g/dL (3.4-5.0); CALCIUM 7.4 mg/dL (8.5-10.1); CREATININE 0.8 mg/dL (0.6-1.3); MAGNESIUM 1.6 mg/dL (1.8-2.4); POTASSIUM 3.9 mmol/L (3.5-5.1); TOTAL BILIRUBIN 0.6 mg/dL (<0.1-1.0)
[2019-11-10 08:00] VITALS: BP 129/78
[2019-11-10 10:48] LABS: MAGNESIUM 2.3 mg/dL (1.8-2.4); POTASSIUM 4.2 mmol/L (3.5-5.1)
--- NOTE | 2019-11-10 13:45 | NUR ---
ASSUMED CARE OF PATIENT THIS AM AT 0730. PATIENT IS ALERT AND ORIENTED X 4. HE SAYS THAT HIS PAIN CONTROLLED AT THE TIME OF HIS ASSESSMENT. PATIENT DENIES N/V. HIS BLOODSUGAR WAS LOW THIS AM AT 51. PATIENT GIVEN 1 AMP OF D50 X 1. DR HUGGINS NOTIFIED. IV FLUIDS STARTED AT 80 ML/HR. SEE FLOW. PATIENT HAS BEEN UP IN THE HALLS. HE SAYS THAT HE IS PASSING SOME GAS. SURGERY ALSO IN TO ROUND. PATIENT GIVEN A SPRITE HE HAS TOLERATED IT WELL AT THIS TIME. NO FALLS OR INJURY. WILL CONTINUE PLAN OF CARE.
[2019-11-10 20:00] VITALS: BP 120/68
[2019-11-10 23:58] VITALS: BP 139/79
[2019-11-11 06:42] LABS: ABSOLUTE EOSINOPHILS 0.4 thou/uL (0.0-0.7); ABSOLUTE LYMPHOCYTES 1.2 thou/uL (0.8-5.3); ABSOLUTE MONOCYTES 0.5 thou/uL (0.0-1.2); ABSOLUTE NEUTROPHILS 3.6 thou/uL (1.6-8.1); BASOPHILS 0.4 %; EOSINOPHILS 6.3 %; HEMATOCRIT 41.3 % (42.0-52.0); LYMPHOCYTES 20.9 %; MCH 31.2 pg (26.0-34.0); MCHC 35.3 g/dL (28.0-37.0); MCV 88.4 fL (80.0-100.0); MONOCYTES 9.3 %; MPV 7.1 fl. (7.2-11.1); NUCLEATED RBCS 0 /100WBC; PLATELET COUNT* 247 thou/uL (150-400); POLYS 63.1 %; RBC 4.67 mil/uL (4.50-6.00); RDW-CV 12.8 % (10.5-14.5); WBC 5.8 thou/uL (4.0-11.0)
[2019-11-11 06:50] LABS: CALCIUM 7.1 mg/dL (8.5-10.1); CREATININE 0.9 mg/dL (0.6-1.3); PHOSPHORUS* 2.4 mg/dL (2.5-4.9); POTASSIUM 3.9 mmol/L (3.5-5.1)
[2019-11-11 06:52] LABS: HEMOGLOBIN 14.6 gm/dL (14.0-18.0)
[2019-11-11 07:00] VITALS: BP 132/79
--- NOTE | 2019-11-11 07:51 | NUR ---
PT A+O X4. DENIED PAIN THROUGHOUT SHIFT. REPORTED PASSING GAS BUT NO BM YET. SLEPT THROUGH MOST OF NIGHT. CALL LIGHT IN REACH. HOURLY ROUNDING FOR SAFETY.
--- NOTE | 2019-11-11 08:19 | NUR ---
INITAL ASSESS,EMT COMPLETED CHARTED. VSS. PT IS M/S STATUS. PT ANN MARIE PAIN, SOA, N/V/D. PT REPORTS PASSING FLATUS AND BM 2 DAYS AGO. BOWEL SOUNDS HYPOACTIVE X 4 QUADS. NO NEW CONCERNS AT THIS TIME. REFER TO COMPUTER CHARTING FOR FURTHER DETAILS. HOURLY ROUNDING FOR PT SAFETY. CLWR.
[2019-11-11] MEDS ORDERED: MIRALAX119 GM PO (08:36)
[2019-11-11 09:46] VITALS: BP 132/79
--- NOTE | 2019-11-11 14:51 | EKG ---
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 : 1960 Requested By: Jose Webster Order Number: [id number] MD: Moises Riddle Measurements Intervals [place] Rate: 78 P: 51 [place]: 154 QRS: 10 QRSD: 116 T: 2 QT: 381 QTc: 434 Interpretive Statements Sinus rhythm Ventricular premature complex IRBBB and LPFB Low voltage, precordial leads Compared to ECG 11/05/2019 16:25:11 Left posterior fascicular block now present Low QRS voltage now present Electronically Signed On 11-11-2019 14:49:26 CDT by Moises Riddle [email or web address] <ELECTRONICALLY SIGNED> By: Moises Riddle MD, FACC 11/11/19 1449 1511 1511 Moises Riddle MD, FAC /EPI
== END 2019-11-11 14:40 | disposition home or self-care (01) | DRG 389 ==
LOC: M.ERS 15:03 → M.2W 16:15 → M.TBA-ER 16:15 → M.2W 17:44
PROVIDERS: Family Medicine; Surgery; ADMIT Internal Medicine
DX: K56.609 Unspecified intestinal obstruction, unspecified as to partial versus complete obstruction (principal); E44.1 Mild protein-calorie malnutrition; K52.9 Noninfective gastroenteritis and colitis, unspecified; K57.30 Diverticulosis of large intestine without perforation or abscess without bleeding; E78.00 Pure hypercholesterolemia, unspecified; K21.9 Gastro-esophageal reflux disease without esophagitis; I25.10 Atherosclerotic heart disease of native coronary artery without angina pectoris; N18.2 Chronic kidney disease, stage 2 (mild); R74.8 Abnormal levels of other serum enzymes; E11.22 Type 2 diabetes mellitus with diabetic chronic kidney disease; E66.9 Obesity, unspecified; E87.6 Hypokalemia; Z90.49 Acquired absence of other specified parts of digestive tract; Z79.899 Other long term (current) drug therapy; Z79.4 Long term (current) use of insulin; Z79.82 Long term (current) use of aspirin; Z88.8 Allergy status to other drugs, medicaments and biological substances; Z87.891 Personal history of nicotine dependence; Z68.30 Body mass index [BMI] 30.0-30.9, adult; I25.2 Old myocardial infarction; Z83.3 Family history of diabetes mellitus; Z82.49 Family history of ischemic heart disease and other diseases of the circulatory system

== ENCOUNTER → 2020-04-10 | Outpatient (CLI) | payer OTHER ==
[~2020-04-10] MED LIST changes: +MIRALAX119 GM PO
--- NOTE | 2020-04-10 18:12 | CARDNUC ---
[place] [address] CARDIAC NUCLEAR IMAGING REPORT Name: NBA LAWTON Room: [facility]#: [id number] Admission: 04/10/20 Attend Phys: Will Ocampo Discharge: Date of : 60 Date of Service: 04/10/201811 Report #: [id number] THIS REPORT FOR: cc: Lisa Marie Linda J. DO Liston, Michael J. MD [facility] ~ APPROVED REPORT Imaging Protocol: Stress Tc-99m/Rest Tc-99m 1 day Study performed: 04/10/2020 12:30:00 Indication: Chest pain Patient Location: Out-Patient Stress Tech: Yudith Luque Stress Nurse: Grisel Guerin RN Ht: 5 ft 8 in Wt: 196 lbs BSA: 2.03 m2 BMI: 29.79 Medical History Medical History: CAD s/p stent, HTN, Hyperlipidemia, Diabetes Medications: asa, ntg, effient Allergies: cipro, doxycycline, metformin, flagyl, sulfa, zolpidem Cardiac Risk Factors: Age, Diabetes (non-insulin), DM, FHX of CAD, HTN, Hyperlipidemia, Tobacco History (Former) Previous Cardiac Procedures: PCI Exercise History: Physically active Resting Data Rest SPECT myocardial perfusion imaging was performed in supine position 30 minutes following the intravenous injection of 10.0 mCi of Tc-99m Sestamibi. Time of rest injection: 12:50 The images were gated to evaluate regional wall motion and calculate left ventricular ejection fraction. Administration Route: IV Administration Site: Right Hand Exercise Stress At peak stress, the patient was injected intravenously with 31.4mCi of Tc-99m Sestamibi. Time of stress injection: 12:25 [place] [address] CARDIAC NUCLEAR IMAGING REPORT Name: NBA LAWTON Room: [facility]#: [id number] Admission: 04/10/20 Attend Phys: Will Ocampo Discharge: Date of : 60 Date of Service: 04/10/20 1812 Report #: [id number] Administration Route: IV Administration Site: Right Hand Heart Rate at time of stress injection: 143 bpm. Patient continued to exercise for 1 minute(s). Gated Stress SPECT was performed 30 minutes after stress injection. The images were gated to evaluate regional wall motion and calculate left ventricular ejection fraction. Prone imaging was performed. Stress Test Details Stress Test: Exercise stress testing was performed using a Eloy protocol. HR Max Heart Rate (APMHR): 161 bpm Resting HR: 68 bpm Target HR (85% APMHR): 136 bpm Max HR Achieved: 143 bpm % of APMHR: 88 Recovery HR: 94 bpm BP Resting BP: 116/63 mmHg Max BP: 184/72 mmHg Recovery BP: 146/75 mmHg ECG Resting ECG: Sinus Rhythm, RBBB Stress ECG: Sinus Tachycardia ST Change: None Arrhythmia: None Recovery ECG: Sinus Rhythm, RBBB Recovery ST Change: None Recovery Arrhythmia: None Clinical Reason for Termination: Maximal effort Exercise duration: 7 min 41 sec Exercise capacity: 9.67 METs Functional Aerobic Impairment 89% The patient tolerated standard Eloy protocol exercise without significant cardiac symptoms. Stress ECG Conclusion The baseline twelve-lead EKG shows sinus rhythm with right bundle branch block. There were no significant ST segment abnormalities. EKGs obtained during and post exercise show sinus rhythm and sinus tachycardia with no significant ST segment [place] [address] CARDIAC NUCLEAR IMAGING REPORT Name: JEREDNBA Issac Room: [facility]#: [id number] Admission: 04/10/20 Attend Phys: Will Ocampo Discharge: Date of : 60 Date of Service: 04/10/20 1812 Report #: [id number] baseline. There were no stress-induced arrhythmias. Study Quality Study: Good Artifact: No artifact Study Data At rest, the left ventricular ejection fraction was 78%.. Post stress, the left ventricular ejection was 65%.. TID = 0.86. Perfusion Perfusion studies obtained at rest and post exercise show uniform uptake of the radioisotope throughout the myocardium without defect. Wall Motion Normal left ventricular wall motion. Nuclear Conclusion ECG Findings: negative for ischemia Clinical Findings: negative for ischemia Nuclear Findings: negative for ischemia Exercise Capacity: normal Left Ventricular Function: normal Risk Study: low Perfusion images show no defect to suggest infarct or ischemia. Left ventricular systolic function appears normal on gated studies. This is a low risk study. <Conclusion> The baseline twelve-lead EKG shows sinus rhythm with right bundle branch block. There were no significant ST segment abnormalities. EKGs obtained during and post exercise show sinus rhythm and sinus tachycardia with no significant ST segment changes when compared to baseline. There were no stress-induced arrhythmias. <ELECTRONICALLY SIGNED> By: Nba Schroeder MD, FACC 04/10/201811 11 11 Nba Schroeder MD, FACC /INF
== END ==
LOC: M.NUC 03-31 10:58
PROVIDERS: ATTEND Internal Medicine
DX: R07.9 Chest pain, unspecified (principal)

== ENCOUNTER 2020-10-23 10:02 | Emergency (ER) | payer OTHER ==
[~2020-10-23] VITALS: Ht 172.7 cm; Wt 83.9 kg
[2020-10-23 10:42] LABS: ABSOLUTE EOSINOPHILS 0.2 thou/uL (0.0-0.7); ABSOLUTE LYMPHOCYTES 0.9 thou/uL (0.8-5.3); ABSOLUTE MONOCYTES 0.6 thou/uL (0.0-1.2); ABSOLUTE NEUTROPHILS 7.5 thou/uL (1.6-8.1); BASOPHILS 0.5 %; EOSINOPHILS 1.7 %; HEMATOCRIT 48.2 % (42.0-52.0); HEMOGLOBIN 16.5 gm/dL (14.0-18.0); LYMPHOCYTES 9.7 %; MCH 30.4 pg (26.0-34.0); MCHC 34.2 g/dL (28.0-37.0); MCV 88.9 fL (80.0-100.0); MPV 6.6 fl. (7.2-11.1); NUCLEATED RBCS 0 /100WBC; PLATELET COUNT* 288 thou/uL (150-400); POLYS 81.1 %; RBC 5.42 mil/uL (4.50-6.00); WBC 9.2 thou/uL (4.0-11.0)
[2020-10-23 10:51] LABS: CALCIUM 8.9 mg/dL (8.5-10.1); CREATININE 0.9 mg/dL (0.6-1.3); POTASSIUM 3.9 mmol/L (3.5-5.1)
[2020-10-23 10:55] LABS: TOTAL BILIRUBIN 0.8 mg/dL (<0.1-1.0); TOTAL PROTEIN 8.6 g/dL (6.4-8.2)
[2020-10-23] MEDS ORDERED: PERCOCET 5-3251 EACH PO ×2 (12:40→13:13)
[2020-10-23] MEDS ORDERED: FLEXERIL PO ×2 (12:40→13:13)
[2020-10-23] MEDS ORDERED: ONDANSETRON ODT4 MG PO ×2 (12:40→13:13)
[2020-10-23 13:36] VITALS: BP 141/65
--- NOTE | 2020-10-23 15:44 | EKG ---
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1960 Requested By: Antelmo Lakhani Order Number: [id number] MD: Carrington Natarajan Measurements Intervals [place] Rate: 77 P: 37 [place]: 164 QRS: -1 QRSD: 125 T: -2 QT: 404 QTc: 458 Interpretive Statements Sinus rhythm Right bundle branch block Compared to ECG 11/09/2019 15:11:42 Ventricular premature complex(es) no longer present Electronically Signed On 10-23-2020 15:44:43 CDT by Carrington Natarajan [email or web address] <ELECTRONICALLY SIGNED> By: Carrington Natarajan MD, [facility] 10/23/20 1544 1138 1138 Carrington Natarajan MD, [facility] /EPI
== END 2020-10-23 13:36 | disposition home or self-care (01) ==
LOC: M.ERS 10:02
PROVIDERS: Physician Assistant
DX: M54.2 Cervicalgia (principal); I25.10 Atherosclerotic heart disease of native coronary artery without angina pectoris; K21.9 Gastro-esophageal reflux disease without esophagitis; E78.00 Pure hypercholesterolemia, unspecified; E11.22 Type 2 diabetes mellitus with diabetic chronic kidney disease; N18.2 Chronic kidney disease, stage 2 (mild); E66.9 Obesity, unspecified; Z68.28 Body mass index [BMI] 28.0-28.9, adult; Z79.4 Long term (current) use of insulin; Z90.49 Acquired absence of other specified parts of digestive tract; Z87.891 Personal history of nicotine dependence; Z88.8 Allergy status to other drugs, medicaments and biological substances

== ENCOUNTER 2021-04-21 08:46 | Observation (INO) | payer OTHER ==
[~2021-04-21] VITALS: Ht 172.7 cm; Wt 81.6 kg
[2021-04-21] VITALS (9 sets, daily range): BP systolic 127–161; BP diastolic 77–90
[~2021-04-21 08:46] MED LIST changes: +FLEXERIL PO; +ONDANSETRON ODT4 MG PO; +PERCOCET 5-3251 EACH PO
[2021-04-21 09:43] LABS: HEMOGLOBIN 15.9 gm/dL (14.0-18.0); MCH 30.7 pg (26.0-34.0); MCHC 34.6 g/dL (28.0-37.0); MCV 88.9 fL (80.0-100.0); MPV 7.1 fl. (7.2-11.1); RBC 5.17 mil/uL (4.50-6.00); RDW-CV 13.3 % (10.5-14.5); WBC 5.4 thou/uL (4.0-11.0)
[2021-04-21 09:46] LABS: ANION GAP 10 mmol/L (7-16); BUN 13 mg/dL (7-18); CHLORIDE 100 mmol/L (98-107); CO2 25 mmol/L (21-32); CREATININE 1.1 mg/dL (0.6-1.3); GLUCOSE 233 mg/dL (70-99); POTASSIUM 4.3 mmol/L (3.5-5.1); SODIUM 135 mmol/L (136-145)
[2021-04-21 09:49] LABS: APTT 27.9 Seconds (25.0-31.3); PROTIME 10.9 Seconds (9.20-11.50)
[2021-04-21 09:53] LABS: ALBUMIN 3.8 g/dL (3.4-5.0); ALKALINE PHOSPHATASE 111 U/L (46-116); CHOLESTEROL 175 mg/dL (<200); HDL CHOLESTEROL 38 mg/dL (>40); LDL CHOLESTEROL 108 mg/dL (<100); SERUM ASSESSMENT Clear; SGOT 25 U/L (15-37); SGPT 38 U/L (30-65); TC:HDL 4.6 Ratio (Not establshd); TOTAL BILIRUBIN 0.4 mg/dL (<0.1-1.0); TOTAL PROTEIN 7.6 g/dL (6.4-8.2); TRIGLYCERIDE 145 mg/dL (<150); VLDL 29 mg/dL (<40)
--- NOTE | 2021-04-21 14:48 | EKG ---
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 04/21/21 1448 0956 0956 Moises Riddle MD, [facility] /EPI
--- NOTE | 2021-04-21 15:21 | CARD ---
[address] [address] CARDIAC CATH REPORT Name: CORBY LAWTON Room: [address] Izabel Balderrama#: [id number] Admission: 04/21/21 Attend Phys: Moises Riddle MD, Discharge: Date of : 60 Report #: [id number] THIS REPORT FOR: cc: Lisa Marie Linda J. DO Holkins,Moises Virgen MD [facility] ~ APPROVED REPORT Study performed: 04/21/2021 10:38:04 Patient Details Patient Status: Out-Patient Room #: Event Personnel Assistant Product Manager- Moises Riddle MD, RN- Janae Titus RN, Scrub- Osvaldo MCMULLEN, Monitor- Elba Diego RTR Procedures Performed Access- Left Femoral Artery, LHC w/wo Coronaries, Atherectomy w/ EMILY placement in LAD, Hemostasis- Angioseal Indication Positive stress test, Chest pain Risk Factors Family History, Hypercholesterolemia, Diabetes Previous Procedures/Diagnoses Previous PCI Admission/Lab Medications/Medications given during procedure Angiomax bolus and infusion Procedure Narrative The patient was brought electively to the Cardiac Catheterization Laboratory and was prepped and draped in a sterile manner. The left femoral was infiltrated with 2% Lidocaine subcutaneous anesthesia. IV conscious sedation was used throughout procedure with appropriate monitoring and was performed in the presence of a registered nurse who was an independent trained observer other than the physician performing the procedure. A 6 Fr [place] sheath was inserted into the left femoral artery. Coronary angiography was performed using coronary diagnostic catheters. The right coronary system was accessed and visualized with a Diagnostic 6 Fr JR 4 [place] [address] CARDIAC CATH REPORT Name: CORBY LAWTON Issac Room: [address] Izabel Balderrama#: [id number] Admission: 04/21/21 Attend Phys: Moises Riddle MD, Discharge: Date of : 60 Report #: [id number] coronary system was accessed and visualized with a Diagnostic 6 Fr JL 4 catheter. The left ventricle was accessed and visualized with a Diagnostic 6 Fr Pigtail catheter. Left ventricular/Aortic Valve gradient assessed via catheter pullback. Left ventriculogram was performed in [place] projection. Pre-demployment femoral angiogram was performed . Closure device was deployed with a Fr Angioseal 6 Fr. The patient tolerated the procedure well and there were no complications associated with the procedure. There was no hematoma. Intraoperative Conscious Sedation Sedation start time: 10:58 Case end Time: 11:55 Fentanyl 75.0 mcg Versed 4.0 mg Fluoro Time: 14.5 minutes Dose: DAP [id number] cGycm2 1659 mGy Contrast Type and Amount: Omnipaque 350 ml Diagnostic Cath Left Main 0% narrowing LAD 30% proximal LAD narrowing with 80% mid LAD in-stent restenosis and 90% distal stenosis beyond the previously deployed stent Circumflex 50% tubular narrowing of the proximal portion of the first and second marginal branches of the circumflex Right Coronary Moderate size dominant vessel with 60% proximal narrowing Left Ventriculography The left ventricle is normal in size with normal contractility. The left ventricular ejection fraction is estimated to be 60%. Left ventricular wall motion abnormalities are not present. There is no mitral insufficiency. Hemodynamics The aortic pressure is 127/77 mmHg with a mean of 97 mmHg. The left ventricular pressure is 122/3 mmHg with a mean of mmHg. The left ventricular end diastolic pressure is 9 mmHg. There was no gradient across the aortic valve upon pullback. PCI Technique Lesion Anticoagulation was achieved with Angiomax. Percutaneous coronary intervention was performed on the mid left anterior descending artery segment. The lesion stenosis prior to intervention was 80% with DEEP 3 flow. A 6 Fr XBLAD 3.5 Guide Catheter was used [place] [address] CARDIAC CATH REPORT Name: CORBY LAWTON Room: [address]#: [id number] Admission: 04/21/21 Attend Phys: Moises Riddle MD, Discharge: Date of : 60 Report #: [id number] ostium. A BMW 190 cm Interventional Guidewire was used to cross the lesion. BALLOON DILATION A Balloon catheter Euphora SC 2.0 x 12mm was inserted and inflated up to 20atm for 7seconds. A cutting balloon Angiosculpt PTCA 2.5 x 10 mm was inserted and inflated up to 14 HOLA for14 seconds and 16 HOLA for 8 seconds. STENT DEPLOYMENT A drug-eluting stent [place] RX Stent 2.75 x 12 mm was inserted and inflated up to 16atm for 7seconds. Additional Inflation: 17atm for 4seconds. Additional Inflation: 18atm for 7seconds. Final angiography reveals 0 % stenosis with DEEP 3 flow. PCI Technique Lesion 2 Percutaneous Coronary Intervention was performed on the distal left anterior descending artery segment. The lesion stenosis prior to intervention was 90% with DEEP 3 flow. A 6 Fr XBLAD 3.5 Guide Catheter was used to engage the left ostium. A BMW 190 cm Interventional Guidewire was used to cross the lesion. Balloon Dilation A Balloon catheter Euphora SC 2.0 x 12 mm was inserted and inflated up to 12atm for 10seconds. Additional Inflation: 16atm for 10seconds. Additional Inflation: 18atm for 7seconds. A balloon catheter [place] Trek 2.25 x 12 mm was inserted and inflated up to 14 HOLA for 6 seconds, 15 HOLA for 6 seconds, and 16 HOLA for 8 seconds. A cutting ballloon catheter Angiosculpt PTCA 2.5 x 10 mm was inserted and inflated up to 5 HOLA for 15 seconds and 11 HOLA for 6 seconds. Stent Deployment A drug-eluting stent [place] RX Stent 2.25 x 15 mm was inserted and inflated up to 10atm for 9seconds. Additional Inflation: 12atm for 6seconds. Final angiography reveals 0 % stenosis with DEEP 3 flow. Conclusion 1. Significant coronary artery disease characterized by the following: A 30% proximal LAD narrowing with 80% mid LAD in-stent restenosis and [facility] [address] [place] [address] CARDIAC CATH REPORT Name: CORBY LAWTON Room: [address] Izabel Balderrama#: [id number] Admission: 04/21/21 Attend Phys: Moises Riddle MD, Discharge: Date of : 60 Report #: [id number] 90% distal LAD narrowing B 50% narrowing of the proximal portions of the first and second marginal branch of the nondominant circumflex C 60% narrowing of the proximal portion of the moderate size dominant right coronary artery 2. Normal left-sided hemodynamic study 3. Normal LV function, estimated ejection fraction being 60% 4 Successful PCI with angioplasty, atherotomy/atherectomy and deployment of drug-eluting stent at the site of 80% mid LAD stenosis with 0% residual narrowing 5. Successful PCI with angioplasty, atherotomy/atherectomy, and deployment of a drug-eluting stent at site of 90% distal LAD stenosis with 0% residual narrowing and DEEP-3 flow to the distal vessel Recommendations Cardiac Risk Reduction Program Aggressive Medical Therapy Medications Administered Aspirin (any) Prasugrel Diagnostic Cath Approved by: Moises Riddle MD Date/Time: 04/21/2021 15:16:38 <ELECTRONICALLY SIGNED> By: Moises Riddle MD, FACC 04/21/21 1520 1520 1520Joallyn Riddle MD, FACC /INF
[2021-04-22] VITALS: BP 135/90
[2021-04-22 04:00] VITALS: BP 131/81
[2021-04-22 04:26] LABS: HEMATOCRIT 45.2 % (42.0-52.0); HEMOGLOBIN 15.8 gm/dL (14.0-18.0); MCH 30.8 pg (26.0-34.0); MCHC 34.9 g/dL (28.0-37.0); MCV 88.2 fL (80.0-100.0); MPV 6.8 fl. (7.2-11.1); RBC 5.12 mil/uL (4.50-6.00); RDW-CV 13.2 % (10.5-14.5); WBC 6.1 thou/uL (4.0-11.0)
[2021-04-22 05:25] LABS: ALBUMIN 3.6 g/dL (3.4-5.0); CALCIUM 8.4 mg/dL (8.5-10.1); CK-MB MASS 4.8 ng/mL (<0.5-3.6); POTASSIUM 3.9 mmol/L (3.5-5.1); TOTAL BILIRUBIN 0.5 mg/dL (<0.1-1.0); TOTAL PROTEIN 7.4 g/dL (6.4-8.2)
--- NOTE | 2021-04-22 06:18 | NUR ---
PT SLEPT MOST OF SHIFT. ASSESSMENT DOCUMENTEE. MEDS GIVEN PER E-MAR. IV PATENT, FLUIDS INFUSING. CATH SITE REMAINED C/D/I. WILL CONTINUE WITH PLAN OF CARE.
[2021-04-22 07:45] VITALS: BP 145/77
[2021-04-22] MEDS ORDERED: EFFIENT10 MG PO (08:15)
--- NOTE | 2021-04-22 10:08 | NUR ---
ASSUMED CARE OF PT AT 0730. PT A&0X4, DENIES ANY PAIN OR SHORTNESS OF BREATH AT THIS TIME. TRACING SR WITH BBB ON THE MEASUREMENT SUPERINTENDENT. ON RA SAT UPPER 90'S. PT UP AD DELORES IN ROOM. LEFT GROIN CATH SITE C/D/I WITH NO HEMATOMA NOTED. CARDIO CONSULT IN PLACE. PT GOAL FOR TODAY IS DISCHARGE PLANNING TO HOME. AM ASSESSMENT CHARTED. MEDICATIONS PER MAR. PT REPOSITIONS SELF. HOURLY ROUNDING OBSERVED. BED IN LOW POSITION. CALL LIGHT WITHIN REACH. WILL CONTINUE PLAN OF CARE.
[2021-04-22 10:45] VITALS: BP 145/77
--- NOTE | 2021-04-22 11:09 | NUR ---
DISCHARGE ORDERS RECEIVED. DISCHARGE INSTRUCTIONS, CARE NOTES, E SCRIPTS AND FOLLOW UP APPTS GIVEN TO PT. PT COMMUNICATES UNDERSTANDING OF DISCHARGE TEACHING. IV AND PUNCHER AND FASTENER REMOVED. PT DISCHARGED WITH ALL BELONGINGS AND PAPERWORK VIA WHEELCHAIR WITH NURSING STAFF TO SPOUSE OWN PERSONAL VEHICLE.
--- NOTE | 2021-04-22 11:22 | EKG ---
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
--- NOTE | 2021-04-22 12:37 | D ---
[address] [address] DISCHARGE SUMMARY Name: CORBY LAWTON Room: [address] Izabel Balderrama#: [id number] Admission: 04/21/21 Attend Phys: Moises Riddle MD, Discharge: 04/22/21 Date of : 60 Report #: [id number] THIS REPORT FOR: cc: Lisa Marie Linda J. DO Holkins,Moises Virgen MD [facility] ~ DATE OF DISCHARGE: 04/22/2021 FINAL DISCHARGE DIAGNOSES: 1. Abnormal stress echocardiogram. 2. Angina. 3. Hypertension. 4. Type 2 diabetes. 5. Hyperlipidemia. 6. Status post deployment of a drug-eluting stent in the mid and distal left anterior descending. PROCEDURES: On 04/21/2021 -- left heart catheterization, left ventriculography, selective coronary arteriography, and percutaneous coronary intervention with angioplasty, atherectomy and stenting of the mid and distal LAD. HOSPITAL COURSE: The patient is a very pleasant 60-year-old male with a history of coronary artery disease, status post prior stenting of the LAD. Recently, he has noted chest discomfort intermittently with activity and some dyspnea. Stress echocardiogram was recently performed and the patient demonstrated ischemic ST-T changes during and post-exercise with accompanying dyspnea. He has risk factors of hypertension, diabetes and hyperlipidemia. In this context, I performed cardiac catheterization on 04/21/2021 which revealed 80% mid LAD and in-stent restenosis with a 90% stenosis of the distal LAD just beyond the previously stented region, 50% narrowing to the first and second marginal branch of the circumflex, and 60% proximal right coronary narrowing. I elected to proceed with PCI performing angioplasty/atherectomy and stenting of the distal and mid LAD with 0% residual narrowing at both sites following stent deployment and DEEP 3 flow to the distal vessel. CK-MB jocy inconsequentially to 4.8. Sodium was 137, potassium 3.9, BUN 12, creatinine 1.0, glucose 123. Hemoglobin 15.8, white blood cell count 6100, hematocrit 45.2, platelets 230,000. The patient ambulated in the hallways without difficulty and there was good hemostasis at the left femoral site of catheterization. DISCHARGE MEDICATIONS: He was discharged home on the following medications: Prasugrel or Effient 10 mg daily with a 60 [place] [address] DISCHARGE SUMMARY Name: CORBY LAWTON Room: [address] [place]#: [id number] Admission: 04/21/21 Attend Phys: Moises Riddle MD, Discharge: 04/22/21 Date of : 60 Report #: [id number] given, omeprazole 20 mg p.r.n., Tresiba insulin 43 units subcutaneously at bedtime, Jardiance 25 mg daily, diphenhydramine 25 mg p.r.n. for sleep, p.r.n. sublingual nitroglycerin 0.4 mg, aspirin 81 mg b.i.d. I will plan to see the patient in followup on 05/18/2021 at 1130 hours at the [facility]. Therefore, the patient is discharged home in stable condition on the aforementioned medications with followup as described above. <ELECTRONICALLY SIGNED> By: Moises Riddle MD, [facility] 04/22/21 1237 0835 0850Moises Riddle MD, FAC /nt
== END 2021-04-22 11:12 | disposition home or self-care (01) ==
LOC: M.CL 08:46 → M.TBA-CV 12:10 → M.2W 17:02 → M.CL 04-23 09:00
PROVIDERS: ADMIT Internal Medicine; ATTEND Internal Medicine
DX: I25.118 Atherosclerotic heart disease of native coronary artery with other forms of angina pectoris (principal); Z20.822 Contact with and (suspected) exposure to COVID-19; I10 Essential (primary) hypertension; E11.9 Type 2 diabetes mellitus without complications; E78.5 Hyperlipidemia, unspecified; Z79.82 Long term (current) use of aspirin; Z79.899 Other long term (current) drug therapy

== ENCOUNTER 2021-07-14 10:43 | Inpatient (IN) | payer OTHER ==
[~2021-07-14] VITALS: Ht 172.7 cm; Wt 83.9 kg
[~2021-07-14 10:43] MED LIST changes: -LIPITOR40 MG PO
[2021-07-14] MEDS ORDERED: LIPITOR40 MG PO (10:51)
--- NOTE | 2021-07-14 11:01 | EKG ---
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: : 1960 Requested By: Alexis Hicks Order Number: [id number] MD: Moises Riddle Measurements Intervals [place] Rate: 68 P: 16 [place]: 157 QRS: -7 QRSD: 150 T: 1 QT: 439 QTc: 467 Interpretive Statements Sinus rhythm Right bundle branch block Compared to ECG 04/22/2021 07:24:23 No significant changes Electronically Signed On 07-14-2021 11:00:51 OUTPATIENT INTERVIEWING CLERK by Moises Riddle [email or web address] <ELECTRONICALLY SIGNED> By: Moises Riddle MD, [facility] 07/14/21 [facility] 51 51 Moises Riddle MD, FACC /EPI
[2021-07-14 11:14] LABS: ABSOLUTE EOSINOPHILS 0.2 thou/uL (0.0-0.7); ABSOLUTE LYMPHOCYTES 1.1 thou/uL (0.8-5.3); ABSOLUTE MONOCYTES 0.6 thou/uL (0.0-1.2); ABSOLUTE NEUTROPHILS 5.4 thou/uL (1.6-8.1); BASOPHILS 0.5 %; EOSINOPHILS 2.8 %; HEMATOCRIT 49.4 % (42.0-52.0); LYMPHOCYTES 15.1 %; MCH 30.7 pg (26.0-34.0); MCHC 34.4 g/dL (28.0-37.0); MCV 89.3 fL (80.0-100.0); MPV 6.8 fl. (7.2-11.1); NUCLEATED RBCS 0 /100WBC; PLATELET COUNT* 268 thou/uL (150-400); POLYS 73.6 %; RBC 5.53 mil/uL (4.50-6.00); RDW-CV 13.1 % (10.5-14.5); WBC 7.3 thou/uL (4.0-11.0)
[2021-07-14 11:41] LABS: CALCIUM 9.1 mg/dL (8.5-10.1); POTASSIUM 3.9 mmol/L (3.5-5.1)
[2021-07-14 11:45] LABS: TOTAL BILIRUBIN 0.7 mg/dL (<0.1-1.0); TOTAL PROTEIN 8.3 g/dL (6.4-8.2)
[2021-07-14 12:29] LABS: CHOLESTEROL 145 mg/dL (<200); HDL CHOLESTEROL 45 mg/dL (>40); LDL CHOLESTEROL 88 mg/dL (<100); SERUM ASSESSMENT Clear; TC:HDL 3.2 Ratio (Not establshd); TRIGLYCERIDE 64 mg/dL (<150); VLDL 13 mg/dL (<40)
[2021-07-14 14:51] VITALS: BP 127/82
[2021-07-14 18:09] VITALS: BP 132/76
[2021-07-14 18:45] VITALS: BP 144/90
[2021-07-14 20:00] VITALS: BP 132/87
[2021-07-15] VITALS: BP 128/77
[2021-07-15 04:00] VITALS: BP 108/72
--- NOTE | 2021-07-15 07:20 | NUR ---
CHANGE OF SHIFT REPORT GIVEN PATIENT SEEN AT BEDSIDE, IN BED RESTING ASSUMED PATIENT CARE
[2021-07-15 08:00] VITALS: BP 126/79
--- NOTE | 2021-07-15 09:48 | NUR ---
Pt is admitted to the hospital for Chest Pain. Pt is to have a heart cath today. Pt is alert and ox3. Met with patient and his to complete assessment. Pt lives with in a house with 2 steps to enter. Previously independent in ADL's and Mobility. No hx of HH, DME, or SNF. Pt fills his prescriptions at the [facility] on [address] He last saw his PCP 4 months ago. Pt does not have DPOA paperwork completed and firmly refused when offered DPOA paperwork to complete. CM to continue to follow for discharge planning.
--- NOTE | 2021-07-15 09:59 | H ---
[address] [address] HISTORY AND PHYSICAL Name: CORBY LAWTON Room: [address] MNanci#: [id number] Admission: 07/14/21 Attend Phys: Moises Riddle MD, Discharge: Date of : 60 Report #: [id number] THIS REPORT FOR: cc: Lisa Marie Linda J. DO Holkins,Moises Virgen MD [facility] ~ ADMIT DATE: 07/14/2021 LOCATION: The patient is in the ER, going to be admitted to telemetry. I do not know the bed. HISTORY OF PRESENT ILLNESS: The patient is a very pleasant 61-year-old male with complex coronary artery disease, status post remote PCIs and more recent PCI on 04/21/2021 to the mid and distal LAD. He also had moderately severe first and second marginal stenosis, which were not approached in that setting. After the procedure on 04/21/2021, he continued to note fatigue. He has also described episodes of chest pain, some of which are heavy and others are sharp. He takes nitrates with intermittent predictability of the response from that medication. The patient has underlying diabetes and hyperlipidemia. The episodes have become somewhat more frequent, and he presented in that context. Nuclear stress testing was performed. We do not have the results of that study today. MEDICATIONS: His medical regimen has included aspirin 81 mg 2 times a day, Jardiance 25 mg daily, Tresiba insulin every morning, p.r.n. sublingual nitroglycerin as needed, omeprazole 20 mg daily, prasugrel 10 mg daily, atorvastatin 40 mg in the evening, diphenhydramine 25 mg for sleep, and doxycycline for recent infection. PAST MEDICAL HISTORY: Remarkable for diabetes and hyperlipidemia. SOCIAL HISTORY: He is a nonsmoker. He is . REVIEW OF SYSTEMS: Unremarkable with the exception of modest chronic anxiety. PHYSICAL EXAMINATION: GENERAL: Reveals a middle-aged male in no acute distress. VITAL SIGNS: Blood pressure is 130/70, pulse rate is 74, respirations are 18 per minute. NECK: Jugular venous pressure is normal. [place]ST: [place] [address] HISTORY AND PHYSICAL Name: CORBY LAWTON Room: [address]#: [id number] Admission: 07/14/21 Attend Phys: Moises Riddle MD, Discharge: Date of : 60 Report #: [id number] CARDIOVASCULAR: Reveals normal first and second heart sounds without murmurs or gallops. ABDOMEN: Slightly obese. EXTREMITIES: Without edema with intact femoral, pedal and radial pulses. DIAGNOSTIC DATA: Nuclear stress test is pending. IMPRESSION: 1. Chest pain, which has increased in frequency and is consistent with angina following an unstable course. 2. Coronary artery disease, status post multiple percutaneous coronary interventions, most recently on 04/21/2021 with atherectomy and stenting of the mid and distal left anterior descending. 3. Diabetes. 4. Hyperlipidemia. RECOMMENDATIONS: Given the aforementioned clinical scenario and the recrudescence of chest pain, which was following a course of increasing frequency and severity, I would strongly consider recatheterization to define current coronary anatomy including the adequacy of the mid and distal LAD stent results of 04/21/2021 with consideration of PCI of the first and second marginal branch to the circumflex. Critical care time is 40 minutes from 12:30 to 13:10 on 07/14/2021. <ELECTRONICALLY SIGNED> By: Moises Riddle MD, [facility] 07/15/21 0959 1212 1237Moises Riddle MD, FACC /nt
[2021-07-15 12:10] VITALS: BP 125/76
[2021-07-15 17:43] VITALS: BP 128/77
[2021-07-15 18:28] VITALS: BP 128/77
--- NOTE | 2021-07-15 18:30 | NUR ---
PATIENT DISCHARGED TO HOME IV AND HEART MONITOR REMOVED PERSONAL BELONGINGS RETURNED DISCHARGE INFORMATION GIVEN, PAPERWORK SIGNED PATIENT ASSISTED OUT VIA WC TO WAITING CAR WITH
--- NOTE | 2021-07-16 10:59 | D ---
[address] [address] DISCHARGE SUMMARY Name: CORBY LAWTON Room: [address] IN M.R.#: [id number] Admission: 07/14/21 Attend Phys: Moises Riddle MD, Discharge: 07/15/21 Date of : 60 Report #: [id number] THIS REPORT FOR: cc: Lisa Marie Linda J. DO Holkins,Moises Virgen MD [facility] ~ DATE OF DISCHARGE: 07/15/2021 FINAL DISCHARGE DIAGNOSES: 1. Recurrent angina. 2. Coronary artery disease. 3. Status post recent percutaneous coronary intervention to the left anterior descending and prior percutaneous coronary interventions. 4. Diabetes. 5. Hypercholesterolemia. PROCEDURES: 07/15/2021 - Selective coronary arteriography and iFR calculations pertinent to moderate first and second marginal and proximal right coronary lesions. HOSPITAL COURSE: The patient is a very pleasant 61-year-old male with complex coronary artery disease and underlying diabetes and hyperlipidemia. On 04/21/2021, I performed PCI, deploying drug-eluting stents after atherectomy in the mid and distal LAD. There was a good angiographic result. Recently, he has experienced recurrent chest discomfort. This was a bit different from his prior angina, was somewhat atypical in its character. He was quite concerned that this reflected recurrent ischemia. In this context, he was hospitalized on 07/14/2021. He underwent cardiac catheterization on 07/15/2021, which revealed widely patent mid and distal LAD stents. There were moderate first and second marginal and proximal right coronary lesions. IFR calculations were performed with the first and second marginal being 0.99 and the proximal right coronary artery being 0.93, all suggesting lack of hemodynamic significance of these lesions. Given this data, it was recommended that we continue current medical therapy including dual antiplatelet therapy. DISCHARGE MEDICATIONS: The patient was discharged home in stable condition on the following medications: Omeprazole 20 mg daily, Tresiba 40 units subcutaneously at bedtime, Jardiance 25 mg daily, p.r.n. sublingual nitroglycerin 0.4 mg, aspirin 81 mg b.i.d., prasugrel or Effient 10 mg daily, atorvastatin [place] [address] DISCHARGE SUMMARY Name: CORBY LAWTON Room: [address]#: [id number] Admission: 07/14/21 Attend Phys: Moises Riddle MD, Discharge: 07/15/21 Date of : 60 Report #: [id number] He is scheduled to return to see my nurse practitioner in 7-10 days and myself in 4-6 weeks. Therefore, the patient is discharged home in stable condition on the aforementioned medications with followup as iterated above. Critical care time is 35 minutes from 1610 to 1645 on 07/15/2021. <ELECTRONICALLY SIGNED> By: Moises Riddle MD, [facility] 07/16/21 4489 1551 1727John Promise Riddle MD, [facility] /nt
--- NOTE | 2021-07-16 12:18 | CARD ---
[address] [address] CARDIAC CATH REPORT Name: NBA LAWTON Room: [address] IN [facility]#: [id number] Admission: 07/14/21 Attend Phys: Moises Riddle MD, Discharge: 07/15/21 Date of : 60 Report #: [id number] THIS REPORT FOR: cc: Lisa Marie Linda J. DO Holkins, John M. MD [facility] ~ APPROVED REPORT Study performed: 07/15/2021 13:33:55 Patient Details Patient Status: In-Patient Room #: 225 The patient is a 61 year-old male Event Personnel Nba Schroeder Security Operations Engineer, Moises Riddle Job Service Specialist, Shannan Houston RN RN, Loree Aceves RN Monitor, Lise Yen Scrub Procedures Performed Left heart catheterization selective coronary arteriography and physiologic assessment by IFR of the first and second marginal branches of the circumflex of in the proximal right coronary Indication Chest pain Risk Factors Hypercholesterolemia, Hypertension Previous Procedures/Diagnoses Previous PCI Procedure Narrative The patient was brought electively to the Cardiac Catheterization Laboratory and was prepped and draped in a sterile manner. The left femoral was infiltrated with 2% Lidocaine subcutaneous anesthesia. IV conscious sedation was used throughout procedure with appropriate monitoring and was performed in the presence of a registered nurse who was an independent trained observer other than the physician performing the procedure. The left femoral accessed via ultrasound guidance. A [place] 6 FR sheath was inserted into the left femoral artery. Coronary angiography was performed [place] [address] CARDIAC CATH REPORT Name: NBA LAWTON Room: [address]#: [id number] Admission: 07/14/21 Attend Phys: Moises Riddle MD, Discharge: 07/15/21 Date of : 60 Report #: [id number] catheters. The right coronary system was accessed and visualized with a 6F 3DRC Diagnostic catheter. The left coronary system was accessed and visualized with a Diagnostic jl4 catheter. The left ventricle was accessed and visualized with a 6 Fr PigtailDiagnostic catheter. Closure device was deployed with a 6 Fr Angioseal. The patient tolerated the procedure well and there were no complications associated with the procedure. There was no hematoma. Intraoperative Conscious Sedation Sedation start time: 1400 Case end Time: 1430 Fentanyl 50 mcg Fluoro Time: 7.5 minutes Dose: 1110 mGy Contrast Type and Amount: Omnipaque 120 mL Diagnostic Cath Left Main 0% narrowing LAD 40% proximal narrowing with widely patent mid and distal LAD stents Circumflex 70% narrowing of the proximal portion of the first and second marginal branches with 30% mid circumflex narrowing Right Coronary Moderate size codominant vessel with 60% proximal stenosis Left Ventriculography Left Ventriculography was not performed. IVUS Anticoagulation was achieved with Heparin. Fractional Flow Reading was performed on the First and second marginal branch of the circumflex and proximal right coronary artery vessel. A 6 Irish XB LAD 3.5 Guide Catheter was used to engage the Left ostium. A IFR FloWire was used. IVUS Findings IFR findings: The minimum value the first marginal branch was 0.99; the minimum value in the second marginal branch was 0.99; the minimal value in the proximal right coronary artery was 0.93; all findings suggest lack of hemodynamic significance of these lesions. Hemodynamics The aortic pressure is 116/61 mmHg with a mean of 28 mmHg. The left ventricular pressure is 115/-2 mmHg with a mean [place] [address] CARDIAC CATH REPORT Name: NBA LAWTON Room: [address]#: [id number] Admission: 07/14/21 Attend Phys: Moises Riddle MD, Discharge: 07/15/21 Date of : 60 Report #: [id number] ventricular end diastolic pressure is 4 mmHg. There was no gradient across the aortic valve upon pullback. PCI Technique Lesion Anticoagulation was achieved with 5000 units of heparin. PCI Technique Lesion The lesion stenosis prior to intervention was First and second marginal branch of the circumflex and proximal right coronary artery% with DEEP 6 Irish XB LAD 3.5 flow. A Left Guide Catheter was used to engage the ostium. A IFR FloWire Interventional Guidewire was used to cross the lesion. BALLOON DILATION A Balloon catheter IFR findings: The minimum value the first marginal branch was 0.99; the minimum value in the second marginal branch was 0.99; the minimal value in the proximal right coronary artery was 0.93; all findings suggest lack of hemodynamic significance of these lesions. was inserted and inflated up to rocio for seconds. Conclusion 1. Coronary artery disease characterized by the following: A 40% proximal LAD narrowing with widely patent mid and distal LAD stents B 70% narrowing the proximal portions of of the first and second marginal branches of the circumflex with 30% mid circumflex narrowing C codominant right coronary artery with a 60% proximal stenosis 2. Normal left-sided hemodynamic study 3. IFR was calculated pertinent to the first and second marginal branch of the circumflex and the proximal right coronary artery with minimum value 0.99,.99 and 0.93 respectively; these all suggest lack of hemodynamic significance. Recommendations Cardiac Risk Reduction Program Agg[facility] [place] [address] CARDIAC CATH REPORT Name: NBA LAWTON Room: [address]#: [id number] Admission: 07/14/21 Attend Phys: Moises Riddle MD, Discharge: 07/15/21 Date of : 60 Report #: [id number] Diagnostic Cath Approved by: Nba Schroeder MD Date/Time: 07/16/2021 11:58:32 <ELECTRONICALLY SIGNED> By: Moises Riddle MD, [facility] 07/16/21 1217 16 16Moises Riddle MD, [facility] /INF
== END 2021-07-15 18:30 | disposition home or self-care (01) | DRG 251 ==
LOC: M.ERS 10:43 → M.2W 10:58 → M.TBA-ER 10:58 → M.2W 18:26
PROVIDERS: Emergency Medicine; Registered Nurse; ADMIT Internal Medicine; ATTEND Internal Medicine
PROC: B241ZZ3 Ultrasonography of Multiple Coronary Arteries, Intravascular (ICD-10-PCS; principal; 2021-07-15)
PROC: 4A023N7 Measurement of Cardiac Sampling and Pressure, Left Heart, Percutaneous Approach (ICD-10-PCS; principal; 2021-07-15)
PROC: 4A033BC Measurement of Arterial Pressure, Coronary, Percutaneous Approach (ICD-10-PCS; principal; 2021-07-15)
PROC: 02703ZZ Dilation of Coronary Artery, One Artery, Percutaneous Approach (ICD-10-PCS; principal; 2021-07-15)
DX: I25.110 Atherosclerotic heart disease of native coronary artery with unstable angina pectoris (principal); Z20.822 Contact with and (suspected) exposure to COVID-19; E78.5 Hyperlipidemia, unspecified; E11.9 Type 2 diabetes mellitus without complications; Z88.8 Allergy status to other drugs, medicaments and biological substances; E78.00 Pure hypercholesterolemia, unspecified

== ENCOUNTER → 2021-07-14 | Outpatient (CLI) | payer OTHER ==
[~2021-07-14] MED LIST changes: +LIPITOR40 MG PO
--- NOTE | 2021-07-14 18:54 | CARDNUC ---
[place] [address] CARDIAC NUCLEAR IMAGING REPORT Name: NBA LAWTON Room: [facility]#: [id number] Admission: 07/14/21 Attend Phys: Nba Schroeder, Discharge: Date of : 60 Date of Service: 07/14/21 1854 Report #: [id number] THIS REPORT FOR: cc: Lisa Marie Linda J. DO Liston, Michael J. MD [facility] ~ APPROVED REPORT Imaging Protocol: Rest Tc-99m/Stress Tc-99m 1 day Study performed: 07/14/2021 09:02:31 Indication: Chest pain and dyspnea Patient Location: Out-Patient Stress Tech: rocco rain Stress Nurse: Grisel Guerin RN NM Tech:MELVIN Parikh Ht: 5 ft 8 in Wt: 188 lbs BSA: 1.99 m2 BMI: 28.58 Medical History Medical History: CAD s/p stent, Diabetes, Former Smoker, HTN, Hyperlipidemia, RBBB Medications: asa-81, ntg, prasugrel, atorvastatin Allergies: metformin, flagyl, zolpidiem Cardiac Risk Factors: Age, DM, FHX of CAD, HTN, Hyperlipidemia, Past Smoker Previous Cardiac Procedures: PCI Exercise History: Physically active Resting Data Rest SPECT myocardial perfusion imaging was performed in supine position 30 minutes following the intravenous injection of 11.0 mCi of Tc-99m Sestamibi. Time of rest injection: 0800 Date: 07/14/2021 The images were gated to evaluate regional wall motion and calculate left ventricular ejection fraction. Administration Route: IV Administration Site: Left AC Pharmacologic Stress Pharmacologic stress test was performed by injecting Regadenoson 0.4 mg IV push over 10-15 seconds immediately followed by the intravenous injection of 35.3 mCi of Tc-99[place] [address] CARDIAC NUCLEAR IMAGING REPORT Name: NBA LAWTON Room: [facility]#: [id number] Admission: 07/14/21 Attend Phys: Nba Schroeder, Discharge: Date of : 60 Date of Service: 07/14/21 1854 Report #: [id number] Time of stress injection: 0905 Date: 07/14/2021 Administration Route: IV Administration Site: Left AC Gated Stress SPECT was performed 40 minutes after stress injection. The images were gated to evaluate regional wall motion and calculate left ventricular ejection fraction. Prone imaging was performed. Stress Test Details Stress Test: Pharmacologic stress testing performed using 0.4 mg of regadenoson per 5 mL given IV over 10 seconds. Reason for pharmacologic stress test: physical limitation. 60 mg caffeine given for headache. HR Max Heart Rate (APMHR): 159 bpm Resting HR: 73 bpm Target HR (85% APMHR): 135 bpm Max HR Achieved: 113 bpm % of APMHR: 71 Recovery HR: 77 bpm BP Resting BP: 133/89 mmHg Max BP: 160/92 mmHg Recovery BP: 150/100 mmHg ECG Resting ECG: Sinus Rhythm, RBBB Stress ECG: Sinus tachycardia, right bundle branch block ST Change: None Arrhythmia: None Recovery ECG: Sinus Rhythm, RBBB Recovery ST Change: None Recovery Arrhythmia: None Clinical Reason for Termination: Completed protocol The patient reported chest pressure and headache during and post Lexiscan infusion for which he was given caffeine. Nurse Comments PT RECEIED 60 MG CAFFEINE IVP FOR CO HEADACHE. PATIENT CO CHEST PRESSURE DURING AND AFTER TEST THAT HE SAYS WAS REMININSENT OF PAST EPISODES IN WHICH HE HAD STENTS PLACED. Leana GUIDO AND DR BERG IN TO SEE PATIENT. DR BERG ORDERED THAT THE PATIENT COMEPLETE THE NUC STUDY AND REMAIN IN THE WAITING ROOM UNTIO IT WAS REVIEWED. [place] [address] CARDIAC NUCLEAR IMAGING REPORT Name: NBA LAWTON Room: [facility]#: [id number] Admission: 07/14/21 Attend Phys: Nba Schroeder, Discharge: Date of : 60 Date of Service: 07/14/21 1854 Report #: [id number] Stress ECG Conclusion The baseline twelve-lead EKG shows sinus rhythm with right bundle branch block. EKGs obtained during and post Lexiscan infusion show sinus rhythm and sinus tachycardia with right bundle branch block. There were no significant ST segment changes when compared to baseline. There were no stress-induced arrhythmias. Study Quality Study: Good Study Data At rest, the left ventricular ejection fraction was 64%.. Post stress, the left ventricular ejection was 68%.. TID = 0.96. Perfusion Perfusion images obtained in the supine position at rest and post Lexiscan stress shows very mild photopenia in the inferior wall that resolves completely with post-rest prone imaging suggesting mild diaphragmatic attenuation artifact. Post-rest prone imaging shows uniform uptake of the radioisotope throughout the myocardium. Wall Motion Normal left ventricular wall motion. Nuclear Conclusion ECG Findings: negative for ischemia Clinical Findings: equivocal Nuclear Findings: negative for ischemia Exercise Capacity: not assessed Left Ventricular Function: normal Risk Study: low Perfusion images show no defect to suggest infarct or ischemia. Left ventricular systolic function appears normal on gated studies. The patient symptoms were likely due to medication effect. This appears to be a low risk study. <Conclusion> The baseline twelve-lead EKG shows sinus rhythm with right bundle branch block. EKGs obtained during and post Lexiscan infusion show sinus rhythm and sinus tachycardia [place] [address] CARDIAC NUCLEAR IMAGING REPORT Name: NBA LAWTON Room: [facility]#: [id number] Admission: 07/14/21 Attend Phys: Nba Schroeder, Discharge: Date of : 60 Date of Service: 07/14/21 1854 Report #: [id number] There were no significant ST segment changes when compared to baseline. There were no stress-induced arrhythmias. <ELECTRONICALLY SIGNED> By: Nba Schroeder MD, FACC 07/14/211853 53 53 Nba Schroeder MD, FACC /INF
== END ==
LOC: M.NUC 07-08 16:40
PROVIDERS: ATTEND Internal Medicine Cardiovascular Disease
DX: I25.10 Atherosclerotic heart disease of native coronary artery without angina pectoris (principal)